=== PATIENT | male | born 1965 | race Hispanic/Latino ===

== ENCOUNTER 2017-01-02 07:49 | Observation (INO) | payer OTHER, BC ==
[2017-01-02] MEDS ORDERED: Aspirin 325 mg EC Tablets PO STA (08:20)
[2017-01-02] MEDS ORDERED: Sodium Chloride 0.9% 1,000 ML IV ONE (08:20)
[2017-01-02 09:03] LABS: BASO # 0.1 K/uL (0.0-0.2); BASO % 0.9 % (0.0-2.0); EOS # 0.1 K/uL (0.0-0.7); EOS % 1.4 % (0.0-4.0); HEMATOCRIT 48.8 % (35.0-51.0); LYMPH # 1.6 K/uL (1.0-4.3); LYMPH % 15.5 % (20.0-40.0); MEAN CELL VOLUME 90.7 fL (80.0-94.0); MEAN CORPUSCULAR HEMOGLOBIN 30.3 pg (27.0-31.0); MEAN CORPUSCULAR HGB CONC 33.4 g/dL (33.0-37.0); MEAN PLATELET VOLUME 8.3 fL (7.2-11.7); MONO # 0.7 K/uL (0.0-0.8); NRBC % 0.1 % (0.0-2.0); RED CELL DISTRIBUTION WIDTH 12.8 % (11.5-14.5); WHITE BLOOD COUNT 10.2 K/uL (4.8-10.8)
[2017-01-02 09:16] LABS: CHLORIDE 102 mmol/L (98-107)
[2017-01-02 09:17] LABS: POTASSIUM 3.5 mmol/L (3.6-5.2); SODIUM 138 mmol/L (132-148)
[2017-01-02 09:19] LABS: ALB/GLOB RATIO 1.6 (1.0-2.1); AST/SGOT 21 U/L (17-59); BILIRUBIN,TOTAL 0.8 mg/dL (0.2-1.3); CARBON DIOXIDE 20 mmol/L (22-30); GFR AFRICAN-AMERICAN > 60; TOTAL PROTEIN 7.9 g/dL (6.3-8.3)
[2017-01-02 09:20] LABS: ALKALINE PHOSPHATASE 55 U/L (38-126); ALT/SGPT 20 U/L (21-72); BLOOD UREA NITROGEN 13 mg/dL (9-20); CALCIUM 9.5 mg/dl (8.6-10.4); GLUCOSE,RANDOM 78 mg/dL (75-110)
[2017-01-02] MEDS ORDERED: Aspirin 325 mg EC Tablets PO ONE (10:01)
--- NOTE | 2017-01-02 10:06 | RAD ---
PROCEDURE: CHEST RADIOGRAPH, 1 VIEW HISTORY: chest pain COMPARISON: None available. FINDINGS: LUNGS: Clear. PLEURA: No pneumothorax or pleural fluid seen. CARDIOVASCULAR: Normal. OSSEOUS STRUCTURES: No significant abnormalities. VISUALIZED UPPER ABDOMEN: Normal. OTHER FINDINGS: None. IMPRESSION: No active disease.
--- NOTE | 2017-01-02 10:14 | RAD ---
PROCEDURE: Radiographs of the Lumbar Spine. HISTORY: pain COMPARISON: No prior. FINDINGS: BONES: Normal alignment. No listhesis. No fracture. DISC SPACES: Mild narrowing at L4-5 intervertebral disc space consistent with degenerative disc disease. Remaining intervertebral disc spaces maintained in height. Unremarkable. OTHER FINDINGS: One or several calculi overlying mid right kidney, 8 mm diameter. IMPRESSION: Degenerative disc disease L4-5. 8 mm calculus or calculi overlying mid right kidney.
--- NOTE | 2017-01-02 10:59 | C.PDOC ---
History Of Present Illness 51 yo male c/o chest pain, SOB and vomiting. Pt notes that he was at work, lifted signs, and right away felt the pain in his back. Pt dropped the signs, and fell over to the side. Ambulance was called and while pt was in the ambulance , he reports getting chest pain and SOB and "passing out". Chest pain is on the left side, feels sharp and does not radiate. Currently has back pain, chest pain, and SOB. (+) h/o "pulled" back. No incontinence. NO change in sesnation. Denies h/o anxiety. According to EMS, pt has syncopal episode, EKG done at the time. Time Seen by Provider: 01/02/17 08:15 Chief Complaint (Nursing): Back Pain History Per: Patient History/Exam Limitations: no limitations Onset/Duration Of Symptoms: Hrs Current Symptoms Are (Timing): Still Present Past Medical History Vital Signs: Last Vital Signs Temp 97.6 F 01/02/17 07:56 Pulse 91 H 01/02/17 07:56 Resp 20 01/02/17 07:56 BP 126/81 01/02/17 07:56 Pulse Ox 98 01/02/17 07:56 Family History: States: Unknown Family Hx - Social History Hx Alcohol Use: No Hx Substance Use: No - Immunization History Hx Tetanus Toxoid Vaccination: No Hx Influenza Vaccination: No Hx Pneumococcal Vaccination: No Review Of Systems Except As Marked, All Systems Reviewed And Found Negative. Cardiovascular: Positive for: Chest Pain Respiratory: Positive for: Shortness of Breath Musculoskeletal: Positive for: Back Pain Physical Exam - Physical Exam Appears: Non-toxic, In Acute Distress (actively vomiting, tachypnea and pale; appears anxious) Skin: Normal Color, Warm, Dry Head: Atraumatic, Normacephalic Eye(s): bilateral: Normal Inspection, PERRL, EOMI Nose: Normal Oral Mucosa: Moist Throat: Normal, No Erythema, No Exudate Neck: Normal, Normal ROM, Supple Lymphatic: Normal Exam Chest: Symmetrical Cardiovascular: Rhythm Regular Respiratory: Normal Breath Sounds Gastrointestinal/Abdominal: Normal Exam, Soft, No Tenderness Back: Paraspinal Tenderness (paralumbar tenderness) Extremity: Normal ROM Neurological/Psych: Oriented x3, Normal Speech, Normal Cognition, Normal Sensation Gait: Unable To Assess ED Course And Treatment - Laboratory Results Result Diagrams: 01/02/17 08:51 01/02/17 08:51 O2 Sat by Pulse Oximetry: 98 - Radiology CXR: Interpreted by Me, Viewed By Me CXR Interpretation: Yes: No Acute Disease Progress Note: Aspirin and O2 ordered. CAsed discussed with Dr Diaz, who evaluated pt at bedside. Agreed upon plan and treatment. On re-evaluation, pt appears anxious. Ativan ordered. On re-evaluation, pt tolerating PO. sleeping. Easy to arouse. When aroused, pt notes back pain persists. Chest pain improved. Case discussed with Dr Howell, agreed upon plan and admission. Disposition - Disposition Disposition: HOSPITALIZED Disposition Time: 11:05 Condition: STABLE - Clinical Impression Clinical Impression: Chest pain, Lumbar sprain, SOB (shortness of breath), Anxiety
--- NOTE | 2017-01-02 11:56 | CT ---
PROCEDURE: CT HEAD WITHOUT CONTRAST. HISTORY: syncope COMPARISON: None available. TECHNIQUE: Axial computed tomography images were obtained through the head/brain without intravenous contrast. Radiation dose: Total exam DLP = 871.03 mGy-cm. This CT exam was performed using one or more of the following dose reduction techniques: Automated exposure control, adjustment of the mA and/or kV according to patient size, and/or use of iterative reconstruction technique. FINDINGS: HEMORRHAGE: No acute parenchymal, subarachnoid or extra-axial hemorrhage. BRAIN: No evidence of large acute infarct. . . No obvious parenchymal nor extra-axial mass or collection identified on this noncontrast study. Mild age-appropriate volume loss VENTRICLES: Unremarkable. No hydrocephalus. CALVARIUM: No acute calvarial fractures. PARANASAL SINUSES: Minor mucosal thickening seen within a few ethmoid air cells MASTOID AIR CELLS: Unremarkable as visualized. No inflammatory changes. OTHER FINDINGS: None. IMPRESSION: No acute intracranial hemorrhage. . Mild age-appropriate volume loss is
[2017-01-02 12:21] LABS: RBC URINE 1 /hpf (0-3); URINE BACTERIA RARE (<OCC); URINE BILIRUBIN NEGATIVE (NEGATIVE); URINE BLOOD NEGATIVE (NEGATIVE); URINE COLOR Yellow (YELLOW); URINE GLUCOSE (UA) NORMAL (Normal); URINE KETONE TRACE mg/dL (NEGATIVE); URINE LEUKOCYTE ESTERASE NEG Leu/uL (Negative); URINE PROTEIN NEGATIVE (NEGATIVE); URINE UROBILINOGEN NORMAL mg/dL (0.2-1.0); WBC URINE 3 /hpf (0-5)
[2017-01-02] MEDS ORDERED: Potassium Chloride 20 mEq ER Tab PO STA ×2 (14:50→21:01)
--- NOTE | 2017-01-02 18:14 | CP.PCM.HP ---
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 pt first felt back pain and it was severe to point to opint were needed to call ambulance pt while in ambulance also passed iwth mild sob and vomitting which got resolved when i spoke to himm in er pt feels much better pt felt little bit of chest pain at that time but no pain now no f/h/o heart disease non soker non etoh absuer Present on Admission - Present on Admission Any Indicators Present on Admission: No Past Patient History - Infectious Disease Hx of Infectious Diseases: None - Past Medical History & Family History Past Medical History?: Yes - Past Social History Smoking Status: Never Smoked - CARDIAC Hx Cardiac Disorders: No Hx Angina: No Hx Atrial Fibrillation: No Hx Cardia Arrhythmia: No Hx Circulatory Problems: No Hx Congestive Heart Failure: No Hx Heart Attack: No Hx Heart Murmur: No Hx Heart Transplant: No Hx Hypercholesterolemia: No Hx Hypertension: No Hx Hypotension: No Hx Internal Defibrillator: No Hx Mitral Valve Prolapse: No Hx Pacemaker: No Hx Peripheral Edema: No Hx Peripheral Vascular Disease: No - PULMONARY Hx Respiratory Disorders: No Hx Asthma: No Hx Emphysema: No Hx Lung Cancer: No Hx Pneumonia: No Hx Pulmonary Edema: No Hx Pulmonary Embolism: No Hx Respiratory Aspiration: No Hx Respiratory Tract Infection: No Hx Sleep Apnea: No Hx Tuberculosis: No - NEUROLOGICAL Hx Neurological Disorder: No Hx Alzheimer's Disease: No HX Cerebrovascular Accident: No Hx Dementia: No Hx Dizziness: No Hx Meningitis: No Hx Migraine: No Hx Multiple Sclerosis: No Hx Paralysis: No Hx Parkinson's Disease: No Hx Seizures: No Hx Syncope: No Hx Transient Ischemic Attacks (TIA): No Hx Vertigo: No - HEENT Hx HEENT Problems: No Hx Blind: No Hx Cataracts: No Hx Deafness: No Hx Difficulty Chewing: No Hx Epistaxis: No Hx Glaucoma: No Hx Macular Degeneration: No Hx Sinusitis: No - RENAL Hx Chronic Kidney Disease: No Hx Dialysis: No Hx Kidney Stones: Yes Hx Neurogenic Bladder: No Hx Pyelonephritis: No Hx Renal (Kidney) Cancer: No Hx Renal Failure: No - ENDOCRINE/METABOLIC Hx Endocrine Disorders: No Hx Adrenal Cancer: No Hx Diabetes Insipidus: No Hx Diabetes Mellitus Type 1: No Hx Diabetes Mellitus Type 2: No Hx Hyperthyroidism: No Hx Hypothyroidism: No Hx Systemic Lupus Erythematosus: No - HEMATOLOGICAL/ONCOLOGICAL Hx Blood Disorders: No Hx AIDS: No Hx Anemia: No Hx Blood Transfusions: No Hx Blood Transfusion Reaction: No Hx Bruising: No Hx Cancer: No Hx Chemotherapy: No Hx Cirrhosis: No Hx Gum Bleeding: No Hx Hemophilia: No Hx Hepatitis A: No Hx Hepatitis B: No Hx Hepatitis C: No Hx Human Immunodeficiency Virus (HIV): No Hx Leukemia: No Hx Metastesis: No Hx Shingles: No Hx Sickle Cell Disease: No Hx Unexplained Bleeding: No Hx von Willebrand's Disease: No - INTEGUMENTARY Hx Dermatological Problems: No Hx Basil Cell: No Hx Paredes: No Hx Cellulitis: No Hx Eczema: No Hx Melanoma: No Hx Psoriasis: No Hx Squamous Cell: No - MUSCULOSKELETAL/RHEUMATOLOGICAL Hx Musculoskeletal Disorders: No Hx Arthritis: No Hx Back Pain: Yes Hx Degenerative Joint Disease: No Hx Falls: No Hx Fractures: No Hx Gout: No Hx Herniated Disk: No Hx Myasthenia Gravis: No Hx Osteoarthritis: No Hx Osteomyelitis: No Hx Osteoporosis: No Hx Rhabdomyolysis: No Hx Rheumatoid Arthritis: No Hx Spinal Stenosis: No Hx Unsteady Gait: No - GASTROINTESTINAL Hx Gastrointestinal Disorders: No - GENITOURINARY/GYNECOLOGICAL Hx Genitourinary Disorders: No - PSYCHIATRIC Hx Anxiety: Yes Hx Bipolar Disorder: No Hx Depression: No Hx Emotional Abuse: No Hx Hallucinations: No Hx Panic Symptoms: No Hx Paranoia: No Hx Post Traumatic Stress Disorder: No Hx Psychosis: No Hx Physical Abuse: No Hx Schizophrenia: No Hx Sexual Abuse: No Hx Substance Use: No - SURGICAL HISTORY Hx Surgeries: No - ANESTHESIA Hx Anesthesia: No Meds Allergies/Adverse Reactions: Allergies Allergy/AdvReac Type Severity Reaction Status Date / Time No Known Allergies Allergy Verified 01/02/17 07:57 Physical Exam - Constitutional Appears: Well - Head Exam Head Exam: ATRAUMATIC, NORMAL INSPECTION, NORMOCEPHALIC - Eye Exam Eye Exam: EOMI, Normal appearance, PERRL Pupil Exam: NORMAL ACCOMODATION, PERRL - ENT Exam ENT Exam: Mucous Membranes Moist, Normal Exam - Neck Exam Neck exam: Positive for: Normal Inspection - Respiratory Exam Respiratory Exam: Decreased Breath Sounds - Cardiovascular Exam Cardiovascular Exam: REGULAR RHYTHM, +S1, +S2 - GI/Abdominal Exam GI & Abdominal Exam: Diminished Bowel Sounds, Soft - Rectal Exam Rectal Exam: Deferred Results - Vital Signs Recent Vital Signs: Last Vital Signs Temp 97.5 F L 01/02/17 13:01 Pulse 78 01/02/17 15:30 Resp 18 01/02/17 13:01 BP 126/88 01/02/17 13:01 Pulse Ox 100 01/02/17 13:01 - Labs Result Diagrams: 01/02/17 08:51 01/02/17 08:51 Labs: Laboratory Results - last 24 hr 01/02/17 01/02/17 12:06 12:06 Urine Color Yellow Urine Clarity Clear Urine pH 9.0 Ur Specific [place] 1.013 Urine Protein Negative Urine Glucose (UA) Normal Urine Ketones Trace Urine Blood Negative Urine Nitrate Negative Urine Bilirubin Negative Urine Urobilinogen Normal Ur Leukocyte Esterase Neg Urine WBC (Auto) 3 Urine RBC (Auto) 1 Urine Bacteria Rare Urine Opiates Screen Negative Urine Methadone Screen Negative Ur Barbiturates Screen Negative Ur Phencyclidine Scrn Negative Ur Amphetamines Screen Negative U Benzodiazepines Scrn Negative U Oth Cocaine Metabols Negative U Cannabinoids Screen Negative Assessment & Plan (1) Renal calculus Status: Acute (2) Anxiety Status: Acute (3) Chest pain Status: Acute (4) Lumbar sprain Status: Acute (5) SOB (shortness of breath) Status: Acute - Assessment and Plan (Free Text) Plan: cardio neuro uro as out pt pt been told that he has stone and needs wokr up aspirin troponin ct head ls spine x ray kcl supplementation monitor pt closely
[2017-01-03] MEDS ORDERED: Potassium Chloride 20 mEq ER Tab PO STA
[2017-01-03] MEDS ORDERED: Potassium Chloride 20 mEq ER Tab PO ONE (00:07)
[2017-01-03 02:41] VITALS: RESP 20
[2017-01-03 07:11] LABS: BASO # 0.1 K/uL (0.0-0.2); BASO % 0.8 % (0.0-2.0); EOS # 0.2 K/uL (0.0-0.7); EOS % 1.8 % (0.0-4.0); HEMATOCRIT 47.3 % (35.0-51.0); LYMPH # 1.7 K/uL (1.0-4.3); MEAN CELL VOLUME 91.8 fL (80.0-94.0); MEAN CORPUSCULAR HEMOGLOBIN 30.8 pg (27.0-31.0); MEAN CORPUSCULAR HGB CONC 33.5 g/dL (33.0-37.0); MONO # 0.7 K/uL (0.0-0.8); MONO % 6.6 % (0.0-10.0); RED CELL DISTRIBUTION WIDTH 12.4 % (11.5-14.5)
[2017-01-03 07:41] LABS: CHLORIDE 104 mmol/L (98-107); SODIUM 138 mmol/L (132-148)
[2017-01-03 07:42] LABS: POTASSIUM 4.2 mmol/L (3.6-5.2)
[2017-01-03 07:44] LABS: ALB/GLOB RATIO 1.3 (1.0-2.1); ALKALINE PHOSPHATASE 47 U/L (38-126); ALT/SGPT 13 U/L (21-72); AST/SGOT 20 U/L (17-59); BILIRUBIN,TOTAL 0.8 mg/dL (0.2-1.3); BLOOD UREA NITROGEN 13 mg/dL (9-20); CARBON DIOXIDE 24 mmol/L (22-30); GFR AFRICAN-AMERICAN > 60; GLUCOSE,RANDOM 87 mg/dL (75-110); TOTAL PROTEIN 7.2 g/dL (6.3-8.3)
[2017-01-03 07:45] LABS: CALCIUM 8.9 mg/dl (8.6-10.4)
[2017-01-03] MEDS: Enoxaparin 40 mg Syringe SC SCH (10:02)
[2017-01-03] MEDS: Pantoprazole 40 mg EC Tab PO SCH (10:03)
--- NOTE | 2017-01-03 10:14 | MRI ---
PROCEDURE: MRI lumbar spine dated 01/03/2017 COMPARISON: Correlation made with plain film radiographs of the lumbar spine dated 01/02/2017. TECHNIQUE: Multi echo multiplanar sequences were performed through the lumbar spine without the use of intravenous contrast. FINDINGS: The current study reveals no acute compression fractures no retropulsed fragments. Vertebral bodies exhibit normal stature. There is mild straightening of the normal lumbar lordosis. Vertebral bodies facets are otherwise normally aligned. Moderately large hemangioma within L3 segment with smaller hemangioma L5 segment. There also appears to be tiny atypical hemangioma within the L1 segment and possibly in the T12 segment as well. Mild multilevel degenerative spondylosis is present. At the L3-L4 level, there mild age related disc desiccation. Disc space height maintained. There is a small medium-sized asymmetric central and bilateral (left slightly larger than right) disc herniation which is associate with a medium-sized annular fissure in the posterior annulus. The disc does result in compressive effects on the ventral surface of the thecal sac centrally and to the left more so than right with compression and posterior displacement of the nearly exiting left-sided intrathecal L4 nerve root. Central canal is adequate despite the at aforementioned disc herniation. Facets are slightly hypertrophic. The disc extends slightly into the proximal inferior margins of both exit foramina. Exit foramina are marginal to adequate. At the L4-L5 level, there is mild disc desiccation and disc space narrowing. Small to medium-sized asymmetric disc bulge larger on the left than right also results in mild compression of the ventral surface of the thecal sac more so on the left side and mild posterior displacement of the nearly exiting left-sided intrathecal L5 nerve root. Central canal appears adequate. Facets are hypertrophic of. The disc does extend into the proximal inferior margins of both exit foramina however the exit foramina appear adequate. At the L5-S1 level, there is disc desiccation and mild disc space narrowing more so along the posterior disc margin. Small central and bilateral disc bulge flattens the ventral surface of the thecal sac however the overall central canal is quite capacious at this level. Facets are mildly hypertrophic. Exit foramina are adequate. Remaining levels exhibit adequate disc height and hydration. No disc herniation or significant disc bulge. Facets are slightly prominent. Central canal and exit foramina appear adequate. Conus terminates at approximately the mid L1 level Incidental note made of a small bilateral renal cysts. Renal ultrasound could be performed for further evaluation. No acute fractures. . Multilevel degenerative spondylosis most notably at affecting the L3-L4 level where small to medium-sized central and bilateral (left greater than right) disc herniation results in compressive effects on the intrathecal nerve roots as detailed above.
--- NOTE | 2017-01-03 10:47 | CP.PCM.PN ---
<Lilly Calabrese - Last Filed: 01/03/17 10:38> Subjective - Date & Time of Evaluation Date of Evaluation: 01/03/17 Time of Evaluation: 10:00 - Subjective Subjective: Medicine Progress Note- Lilly Calabrese PGY2 Patient seen and examined. Patient went for MRI Lumbar spine today and was informed of results. Patient currently complains of back pain rated 7/10 localized to his low mid-back. Patient states that his chest pain has resolved and was only present when he was in the ambulance. Patient has not had any more episodes of syncope or dizziness since admission. Patient is ambulating without difficulty. Per patient he has experienced back pain before while working due to muscle spasms. Currently denies fever, chest pain, shortness of breath, and headache. Objective - Vital Signs/Intake and Output Vital Signs (last 24 hours): Temp Pulse Resp BP Pulse Ox 97.5 F L 69 20 123/79 95 01/03/17 07:11 01/03/17 07:11 01/03/17 07:11 01/03/17 07:11 01/03/17 07:11 Intake and Output: 01/03/17 01/03/17 06:59 18:59 Output Total 250 Balance -250 - Medications Medications: Current Medications Aspirin (Aspirin) 325 mg PO DAILY [facility] Last Admin: 01/03/17 10:03 Dose: 325 mg Enoxaparin Sodium (Lovenox) 40 mg SC DAILY [facility] Last Admin: 01/03/17 10:02 Dose: 40 mg Ibuprofen (Motrin Tab) 400 mg PO Q8 PRN PRN Reason: Pain, moderate (4-7) Last Admin: 01/02/17 19:02 Dose: 400 mg Pantoprazole Sodium (Protonix Ec Tab) 40 mg PO DAILY [facility] Last Admin: 01/03/17 10:03 Dose: 40 mg - Labs Labs: 01/03/17 06:57 01/03/17 06:57 - Constitutional Appears: Non-toxic, No Acute Distress - Head Exam Head Exam: ATRAUMATIC, NORMOCEPHALIC - Eye Exam Eye Exam: EOMI, Normal appearance - ENT Exam ENT Exam: Mucous Membranes Moist - Neck Exam Neck Exam: Normal Inspection - Respiratory Exam Respiratory Exam: Clear to Ausculation Bilateral, NORMAL BREATHING PATTERN. absent: Rhonchi, Wheezes, Respiratory Distress - Cardiovascular Exam Cardiovascular Exam: REGULAR RHYTHM, +S1, +S2 - GI/Abdominal Exam GI & Abdominal Exam: Soft, Normal Bowel Sounds. absent: Firm, Guarding, Rigid, Tenderness - Extremities Exam Extremities Exam: Normal Inspection. absent: Pedal Edema - Back Exam Back Exam: Full ROM. absent: CVA tenderness (L), CVA tenderness (R) - Neurological Exam Neurological Exam: Alert, Awake, CN II-XII Intact, Oriented x3 - Psychiatric Exam Psychiatric exam: Normal Affect, Normal Mood - Skin Skin Exam: Dry, Intact, Normal Color, Warm Assessment and Plan - Assessment and Plan (Free Text) Assessment: 1. Chest pain Resolved ROMIs negative x3 [employer] Dr Murdock consulted ASA 81mg PO daily CXR- no active disease 2. Back pain Degenerative disc disease L4-5. 8 mm calculus or calculi overlying mid right kidney. Lumbar spine MRI- The current study reveals no acute compression fractures no retropulsed fragments. Moderately large hemangioma within L3 segment with smaller hemangioma L5 segment. There also appears to be tiny atypical hemangioma within the L1 segment and possibly in the T12 segment as well. Mild multilevel degenerative spondylosis is present. At the L3-L4 level, there mild age related disc desiccation. There is a small medium-sized asymmetric central and bilateral (left slightly larger than right) disc herniation which is associate with a medium-sized annular fissure in the posterior annulus. At the L4-L5 level, there is mild disc desiccation and disc space narrowing. At the L5-S1 level, there is disc desiccation and mild disc space narrowing more so along the posterior disc margin. 3. Syncope Neuro Dr Bedoya consulted CT head- negative for acute findings PT eval 4. Prophylactic measures Lovenox 40mg SC daily Protonix 40mg PO daily [facility] <Gladis Howell S - Last Filed: 01/03/17 14:04> Objective - Vital Signs/Intake and Output Vital Signs (last 24 hours): Temp Pulse Resp BP Pulse Ox 97.5 F L 69 20 123/79 95 01/03/17 07:11 01/03/17 07:11 01/03/17 07:11 01/03/17 07:11 01/03/17 07:11 Intake and Output: 01/03/17 01/03/17 06:59 18:59 Output Total 250 Balance -250 - Medications Medications: Current Medications Aspirin (Aspirin Chewable) 81 mg PO DAILY [facility] Enoxaparin Sodium (Lovenox) 40 mg SC DAILY [facility] Last Admin: 01/03/17 10:02 Dose: 40 mg Ibuprofen (Motrin Tab) 400 mg PO Q8 PRN PRN Reason: Pain, moderate (4-7) Last Admin: 01/03/17 11:24 Dose: 400 mg Pantoprazole Sodium (Protonix Ec Tab) 40 mg PO DAILY [facility] Last Admin: 01/03/17 10:03 Dose: 40 mg - Labs Labs: 01/03/17 06:57 01/03/17 06:57 Assessment and Plan (1) Renal calculus Status: Acute (2) Anxiety Status: Acute (3) Chest pain Status: Resolved (4) Lumbar sprain Status: Acute (5) SOB (shortness of breath) Status: Resolved Attending/Attestation - Attestation I have personally seen and examined this patient.: Yes I have fully participated in the care of the patient.: Yes I have reviewed all pertinent clinical information, including history, physical exam and plan: Yes Notes (Text): 01/03/17 14:04 mri reveals multiple hemangiomas pt has pain whour [facility] is better told him about result elaina same awaiting for consultation for followup possible discharge tomrrow
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
--- NOTE | 2017-01-03 11:19 | CON ---
DATE: 01/03/2017 ATTENDING PHYSICIAN: Blue Howell MD The patient's room number is 650, bed B. CHIEF COMPLAINT: The patient was brought into [facility] with a history of lower back pain and the process of coming to the [facility] the patient was passed out in the ambulance. From neuro logical point of view, I was called in to evaluate him for further management. 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 Because of the abrupt onset of his lower back, he gave up the signs. Because of the i ntensified pain he was not able to move by himself. Ambulance was called in. In the ambulance he wa s told he passed out with profuse sweating. He also had left-sided chest pain which was sharp in roger ure. This back pain is not related to bowel and bladder incontinence. No sexual dysfunction. No radicula r nature. No associated with numbness and tingling sensation. PAST MEDICAL HISTORY: Unremarkable. PERSONAL HISTORY: Denies smoking or alcohol use. ALLERGIES: No known allergies. MEDICATIONS: Aspirin, Lovenox, ibuprofen, and pantoprazole. PHYSICAL EXAMINATION: VITAL SIGNS: Blood pressure 123/79, mean arterial pressure of 93, respiratory rate 16, temperature 9 7.5 with a pulse rate of 69. NECK: Supple. No carotid bruit. HEART SOUNDS: Regular. CHEST: Fair air entry. EXTREMITIES: No edema in legs. NEUROLOGIC EXAMINATION: MENTAL STATUS: He is awake, alert, oriented to person, place, and time. His speech is clear. Namin g, repetition, fluency, comprehension all within normal. CRANIAL NERVES: Visual field intact. Pupils reactive to light. Extraocular movements are normal. No nystagmus. No facial sensory deficit, no facial asymmetry. Hearing is normal. Tongue is midline . Good gag. MOTOR: On outstretched hands with eyes closed, no drift noted. Power is symmetric on either side in the upper extremities. LOWER EXTREMITIES: Pain limited exam. He was able to lift both lower extremities against the gravit y with pain; however he was not able to sustain in one position. STRENGTH: Muscle strength individually shows 5-/5 knee flexion and hip flexion. His other muscle gr oups are 5/5. DEEP TENDON REFLEXES: Biceps, brachioradialis, triceps are 1+, both knees are 2+, both ankles are 1+ . Plantars are equivocal response on his left side; right side was downgoing. SENSORY: No evidence of dermatomal sensory loss. GAIT: Deferred at this time. CONCLUSION: Upon reviewing his history and neurological examination, the patient has been presenting with abrupt onset of lower back pain related to his lifting. Probably he herniated his disk in his back, or it could be worsening his preexisting problem. His syncopal episode is not related; however, it could be related to the pain. Unlikely it could be a neurogenic cause with the nature of the history. The patient should be worked up by state historical society director because of his pain associating with syncopal attack. WORKUP: WBC 10.2, hemoglobin 16.3, hematocrit 48.8, platelet 321. D-dimer less than 200. Sodium 13 8, potassium 3.5, chloride 102, bicarbonate 20, GFR more than 60. Urinalysis normal. Urine tox scre en negative. X-ray of the lumbosacral spine shows a disk problem, degenerative disk disease. CT of the head negative. RECOMMENDATIONS: 1. Bed rest, pain medication. 2. EEG to rule out any electrographic seizures. 3. Cardiology workup for clearance before he goes home. 4. The patient should have MRI of the brain. If MRI is no acute pathology, then the patient can be managed as outpatient. Tim Bedoya MD cc: [id number] TT: 01/03/2017 11:18:27 Confirmation # [id number] Dictation # [id number] mn
--- NOTE | 2017-01-04 07:32 | CP.PCM.PN ---
<Lilly Calabrese - Last Filed: 01/04/17 09:47> Subjective - Date & Time of Evaluation Date of Evaluation: 01/04/17 Time of Evaluation: 09:48 - Subjective Subjective: Medicine Progress Note- Lilly Calabrese PGY2 Patient seen and examined. Patient states that he feels better today. Patient' s back pain has improved and he no longer is experiencing any chest pain. Denies fever, chills, nausea, vomiting, chest pain, shortness of breath, cough, weakness, numbness, tingling, headache, palpitations, and syncope. Objective - Vital Signs/Intake and Output Vital Signs (last 24 hours): Temp Pulse Resp BP Pulse Ox 97.5 F L 71 20 105/66 97 01/04/17 04:05 01/04/17 04:05 01/04/17 04:05 01/04/17 04:05 01/04/17 04:05 Intake and Output: 01/04/17 01/04/17 06:59 18:59 Output Total 800 Balance -800 - Medications Medications: Current Medications Acetaminophen (Tylenol 325mg Tab) 650 mg PO Q6 PRN PRN Reason: Headache Aspirin (Aspirin Chewable) 81 mg PO DAILY [facility] Enoxaparin Sodium (Lovenox) 40 mg SC DAILY [facility] Last Admin: 01/03/17 10:02 Dose: 40 mg Ibuprofen (Motrin Tab) 400 mg PO Q8 PRN PRN Reason: Pain, moderate (4-7) Last Admin: 01/03/17 11:24 Dose: 400 mg Pantoprazole Sodium (Protonix Ec Tab) 40 mg PO DAILY [facility] Last Admin: 01/03/17 10:03 Dose: 40 mg - Labs Labs: 01/03/17 06:57 01/03/17 06:57 - Constitutional Appears: Non-toxic, No Acute Distress - Head Exam Head Exam: ATRAUMATIC, NORMOCEPHALIC - Eye Exam Eye Exam: EOMI, Normal appearance Pupil Exam: NORMAL ACCOMODATION - ENT Exam ENT Exam: Mucous Membranes Moist - Neck Exam Neck Exam: Normal Inspection - Respiratory Exam Respiratory Exam: Clear to Ausculation Bilateral, NORMAL BREATHING PATTERN. absent: Rhonchi, Wheezes, Respiratory Distress - Cardiovascular Exam Cardiovascular Exam: REGULAR RHYTHM, +S1, +S2 - GI/Abdominal Exam GI & Abdominal Exam: Soft, Normal Bowel Sounds. absent: Tenderness - Extremities Exam Extremities Exam: Normal Inspection. absent: Pedal Edema - Back Exam Back Exam: paraspinal tenderness - Neurological Exam Neurological Exam: Alert, Awake, Oriented x3 - Psychiatric Exam Psychiatric exam: Normal Affect, Normal Mood - Skin Skin Exam: Dry, Intact, Normal Color, Warm - Additional Findings Additional findings: - Constitutional Appears: Non-toxic, No Acute Distress - Head Exam Head Exam: ATRAUMATIC, NORMOCEPHALIC - Eye Exam Eye Exam: EOMI, Normal appearance - ENT Exam ENT Exam: Mucous Membranes Moist - Neck Exam Neck Exam: Normal Inspection - Respiratory Exam Respiratory Exam: Clear to Ausculation Bilateral, NORMAL BREATHING PATTERN. absent: Rhonchi, Wheezes, Respiratory Distress - Cardiovascular Exam Cardiovascular Exam: REGULAR RHYTHM, +S1, +S2 - GI/Abdominal Exam GI & Abdominal Exam: Soft, Normal Bowel Sounds. absent: Firm, Guarding, Rigid, Tenderness - Extremities Exam Extremities Exam: Normal Inspection. absent: Pedal Edema - Back Exam Back Exam: Full ROM. absent: CVA tenderness (L), CVA tenderness (R) - Neurological Exam Neurological Exam: Alert, Awake, CN II-XII Intact, Oriented x3 - Psychiatric Exam Psychiatric exam: Normal Affect, Normal Mood - Skin Skin Exam: Dry, Intact, Normal Color, Warm Assessment and Plan - Assessment and Plan (Free Text) Assessment: 1. Chest pain Resolved ROMIs negative x3 Labor Relations Director Dr Murdock consulted ASA 81mg PO daily CXR- no active disease Per cardiology: Unlikely ACS given NSR on EKG without ST-changes and negative trops x3, but continue to monitor telemetry, pending ECHO 2. Back pain Degenerative disc disease L4-5. 8 mm calculus or calculi overlying mid right kidney. Lumbar spine MRI- The current study reveals no acute compression fractures no retropulsed fragments. Moderately large hemangioma within L3 segment with smaller hemangioma L5 segment. There also appears to be tiny atypical hemangioma within the L1 segment and possibly in the T12 segment as well. Mild multilevel degenerative spondylosis is present. At the L3-L4 level, there mild age related disc desiccation. There is a small medium-sized asymmetric central and bilateral (left slightly larger than right) disc herniation which is associate with a medium-sized annular fissure in the posterior annulus. At the L4-L5 level, there is mild disc desiccation and disc space narrowing. At the L5-S1 level, there is disc desiccation and mild disc space narrowing more so along the posterior disc margin. f/u with Dr Bedoya regarding imaging results 3. Syncope Neuro Dr Bedoya consulted CT head- negative for acute findings PT eval f/u EEG EK01/02/17- Normal sinus rhythm at 84, No acute ST changes, mild QTc prolongation at 458 Chest X-ray: 01/02/17- no active disease Troponins: negative X 3 4. Prophylactic measures Lovenox 40mg SC daily Protonix 40mg PO daily [facility] Management per Dr Howell <Gladis Howell S - Last Filed: 01/04/17 18:24> Objective - Vital Signs/Intake and Output Vital Signs (last 24 hours): Temp Pulse Resp BP Pulse Ox 98.4 F 79 20 120/61 96 01/04/17 15:21 01/04/17 15:21 01/04/17 15:21 01/04/17 15:21 01/04/17 15:21 Intake and Output: 01/04/17 01/04/17 06:59 18:59 Intake Total 500 Output Total 800 1040 Balance -800 -540 - Medications Medications: Current Medications Acetaminophen (Tylenol 325mg Tab) 650 mg PO Q6 PRN PRN Reason: Headache Aspirin (Aspirin Chewable) 81 mg PO DAILY [facility] Last Admin: 01/04/17 09:11 Dose: 81 mg Enoxaparin Sodium (Lovenox) 40 mg SC DAILY [facility] Last Admin: 01/04/17 09:08 Dose: 40 mg Ibuprofen (Motrin Tab) 400 mg PO Q8 PRN PRN Reason: Pain, moderate (4-7) Last Admin: 01/03/17 11:24 Dose: 400 mg Pantoprazole Sodium (Protonix Ec Tab) 40 mg PO DAILY [facility] Last Admin: 01/04/17 09:08 Dose: 40 mg - Labs Labs: 01/03/17 06:57 01/03/17 06:57 Assessment and Plan (1) Renal calculus Status: Acute (2) Anxiety Status: Acute (3) Chest pain Status: Resolved (4) Lumbar sprain Status: Acute (5) SOB (shortness of breath) Status: Resolved Attending/Attestation - Attestation I have personally seen and examined this patient.: Yes I have fully participated in the care of the patient.: Yes I have reviewed all pertinent clinical information, including history, physical exam and plan: Yes Notes (Text): 01/04/17 18:24 pt wtih mutlipe issues with syncope and back rupesh field to clear for discharge as pt has multiple hemangiomnas on back elaina same
[2017-01-04 08:10] VITALS: O2SAT 96
[2017-01-04] MEDS: Enoxaparin 40 mg Syringe SC SCH (09:08)
[2017-01-04] MEDS: Pantoprazole 40 mg EC Tab PO SCH (09:08)
--- NOTE | 2017-01-04 10:29 | CP.PCM.PN ---
Subjective - Date & Time of Evaluation Date of Evaluation: 01/04/17 Time of Evaluation: 13:40 - Subjective Subjective: clinically same Objective - Vital Signs/Intake and Output Vital Signs (last 24 hours): Temp Pulse Resp BP Pulse Ox 98.2 F 72 20 123/80 96 01/04/17 07:00 01/04/17 07:00 01/04/17 07:00 01/04/17 07:00 01/04/17 07:00 Intake and Output: 01/04/17 01/04/17 06:59 18:59 Output Total 800 Balance -800 - Medications Medications: Current Medications Acetaminophen (Tylenol 325mg Tab) 650 mg PO Q6 PRN PRN Reason: Headache Aspirin (Aspirin Chewable) 81 mg PO DAILY [facility] Last Admin: 01/04/17 09:11 Dose: 81 mg Enoxaparin Sodium (Lovenox) 40 mg SC DAILY [facility] Last Admin: 01/04/17 09:08 Dose: 40 mg Ibuprofen (Motrin Tab) 400 mg PO Q8 PRN PRN Reason: Pain, moderate (4-7) Last Admin: 01/03/17 11:24 Dose: 400 mg Pantoprazole Sodium (Protonix Ec Tab) 40 mg PO DAILY [facility] Last Admin: 01/04/17 09:08 Dose: 40 mg - Labs Labs: 01/03/17 06:57 01/03/17 06:57 - Constitutional Appears: Well - Head Exam Head Exam: ATRAUMATIC, NORMAL INSPECTION, NORMOCEPHALIC - Eye Exam Eye Exam: EOMI, Normal appearance, PERRL Pupil Exam: NORMAL ACCOMODATION, PERRL - ENT Exam ENT Exam: Mucous Membranes Moist, Normal Exam - Neck Exam Neck Exam: Full ROM, Normal Inspection. absent: Lymphadenopathy - Respiratory Exam Respiratory Exam: Decreased Breath Sounds - Cardiovascular Exam Cardiovascular Exam: REGULAR RHYTHM, +S1, +S2 - GI/Abdominal Exam GI & Abdominal Exam: Soft, Diminished Bowel Sounds - Rectal Exam Rectal Exam: Deferred Assessment and Plan (1) Renal calculus Status: Acute (2) Anxiety Status: Acute (3) Chest pain Status: Resolved (4) Lumbar sprain Status: Acute (5) SOB (shortness of breath) Status: Resolved - Assessment and Plan (Free Text) Plan: pt wtih mutlipe issues with syncope and back rupesh field to clear for discharge as pt has multiple hemangiomnas on back elaina same
--- NOTE | 2017-01-04 11:17 | CP.PCM.PN ---
<Prakash Srivastava - Last Filed: 01/04/17 11:12> Subjective - Date & Time of Evaluation Date of Evaluation: 01/04/17 Time of Evaluation: 07:25 - Subjective Subjective: Cardiology progress note Dr Murdock Patient seen and examined at the bedside. No acute distress, resting comfortably in bed. No acute events overnight as per patient and nursing. No chest pain, shortness of breath, dizziness, or further syncopal episodes at rest or with ambulation. Back pain improved but not fully resolved. The patient denies other cardiopulmonary complaints. 12 point review of systems was completed and returned negative aside from the above stated complaints. Objective - Vital Signs/Intake and Output Vital Signs (last 24 hours): Temp Pulse Resp BP Pulse Ox 98.2 F 72 20 123/80 96 01/04/17 07:00 01/04/17 07:00 01/04/17 07:00 01/04/17 07:00 01/04/17 07:00 Intake and Output: 01/04/17 01/04/17 06:59 18:59 Output Total 800 Balance -800 - Medications Medications: Current Medications Acetaminophen (Tylenol 325mg Tab) 650 mg PO Q6 PRN PRN Reason: Headache Aspirin (Aspirin Chewable) 81 mg PO DAILY [facility] Last Admin: 01/04/17 09:11 Dose: 81 mg Enoxaparin Sodium (Lovenox) 40 mg SC DAILY [facility] Last Admin: 01/04/17 09:08 Dose: 40 mg Ibuprofen (Motrin Tab) 400 mg PO Q8 PRN PRN Reason: Pain, moderate (4-7) Last Admin: 01/03/17 11:24 Dose: 400 mg Pantoprazole Sodium (Protonix Ec Tab) 40 mg PO DAILY [facility] Last Admin: 01/04/17 09:08 Dose: 40 mg - Labs Labs: 01/03/17 06:57 01/03/17 06:57 - Additional Findings Additional findings: - Constitutional Appears: Well, Non-toxic, No Acute Distress, Resting comfortably in bed - Head Exam Head Exam: ATRAUMATIC, NORMAL INSPECTION, NORMOCEPHALIC - Eye Exam Eye Exam: EOMI, Normal appearance. absent: Conjunctival injection, Scleral icterus Pupil Exam: absent: Irregular, Unequal - ENT Exam ENT Exam: Mucous Membranes Moist - Neck Exam Neck exam: Positive for: Full Rom, Normal Inspection. Negative for: Tenderness , JVD - Respiratory Exam Respiratory Exam: Clear to Auscultation Bilateral, NORMAL BREATHING PATTERN. absent: Accessory Muscle Use, Chest Wall Tenderness, Decreased Breath Sounds, Rales, Rhonchi, Wheezes - Cardiovascular Exam Cardiovascular Exam: REGULAR RHYTHM, RRR, +S1, +S2. absent: Bradycardia, Tachycardia, Clicks, Diastolic murmur, Irregular Rhythm, JVD, +S4, Systolic Murmur - GI/Abdominal Exam GI & Abdominal Exam: Normal Bowel Sounds, Soft. absent: Diminished Bowel Sounds , Distended, Firm, Hyperactive Bowel Sounds, Hypoactive Bowel Sounds, Rigid, Tenderness - Extremities Exam Extremities exam: Positive for: normal capillary refill, pedal pulses present (+ 2 dorsalis pedis bilaterally). Negative for: calf tenderness, joint swelling, pedal edema, tenderness - Back Exam Back exam: Full ROM. absent: CVA tenderness (L or R), muscle spasm, rash - Neurological Exam Neurological exam: Alert, CN II-XII Intact, Oriented x3 - Psychiatric Exam Psychiatric exam: Normal Affect, Normal Mood - Skin Skin Exam: Dry, Intact, Normal Color, Warm Assessment and Plan (1) Episode of syncope Assessment & Plan: EK01/02/17- Normal sinus rhythm at 84, No acute ST changes, mild QTc prolongation at 458 Chest X-ray: 01/02/17- no active disease Troponins: negative X 3 -Anxiety vs neuro etiology vs ACS vs cardiogenic syncope; Likely anxiety but will obtain Echo to ensure not cardiogenic -continue Telemetry monitoring -NSR on EKG and trops negative x3, so less likely ACS -No prior stress testing or Echo noted, Echo pending -Hemodynamically stable, cardiac stable Status: Acute (2) Chest pain Assessment & Plan: EK01/02/17- Normal sinus rhythm at 84, No acute ST changes, mild QTc prolongation at 458 Chest X-ray: 01/02/17- no active disease Troponins: negative X 3 -Anxiety vs ACS: Resolved -Pt admits to history of chest pain after emotional/stressful situations, always self-resolves; no chest pain today -Unlikely ACS given NSR on EKG without ST-changes and negative trops x3, but continue to monitor telemetry, pending Echo Status: Resolved (3) SOB (shortness of breath) Assessment & Plan: EK01/02/17- Normal sinus rhythm at 84, No acute ST changes, mild QTc prolongation at 458 Chest X-ray: 01/02/17- no active disease Troponins: negative X 3 -anxiety vs ACS vs lung pathology: resolved -no history of lung pathology, CXR on admit negative for acute process -never smoker -patient reports anxious in the ambulance due to concern for serious health issue, never needed EMS previously, became short of breath; no further incidence since arrival to hospital, satting well on Room air, CTAB on exam without wheezes/rales/ronchi Status: Resolved - Assessment and Plan (Free Text) Assessment: If Echo is unremarkable, patient will likely be clear for discharge from Cardiac standpoint Case discussed with Dr. Murdock. <Loreto Murdock - Last Filed: 01/06/17 20:20> Objective - Vital Signs/Intake and Output Vital Signs (last 24 hours): Temp Pulse Resp BP Pulse Ox 98.4 F 79 20 120/61 96 01/04/17 15:21 01/04/17 15:21 01/04/17 15:21 01/04/17 15:21 01/04/17 15:21 - Labs Labs: 01/03/17 06:57 01/03/17 06:57 Attending/Attestation - Attestation I have personally seen and examined this patient.: Yes I have fully participated in the care of the patient.: Yes I have reviewed all pertinent clinical information, including history, physical exam and plan: Yes Notes (Text): 01/06/17 20:20 outpt stress pain improved nl echo
[2017-01-04 15:25] VITALS: BP 120/61; PULSE 79; TEMP 98.4
--- NOTE | 2017-01-04 18:32 | PN ---
DATE: 01/04/2017 NEUROLOGICAL PROBLEM: Lumbosacral pain, probably disk pathology. PHYSICAL EXAMINATION: VITAL SIGNS: Blood pressure 123/80, mean arterial pressure 94, respiratory rate 16, temperature 98. 2, pulse rate 72 and regular. NEUROLOGIC: The patient is more awake, alert, oriented to person, place, and time. His back pain is very comfortable. He was able to walk normal. On examination, the patient able to walk heel as wel l as the toes, he was able to sit and get up on his own. Examination no evidence of radiculopathy or neuropathy. His MRA was reported as mild disk desiccation at L3-L4 region, L4-L5 as well as L5-S1 also showed a d isk desiccation with narrowing of the disk space without affecting the nerve root. RECOMMENDATIONS: Continue the present management for the pain. The patient can be discharged from n euro point of view and he should have a neurological followup as outpatient if his symptoms persist. Thank you very much for giving me this opportunity to take care of the patient with you. Tim Bedoya MD cc: [id number] TT: 01/04/2017 18:31:51 Confirmation # [id number] Dictation # [id number]
--- NOTE | 2017-01-04 21:39 | EEG ---
DATE: 01/04/2017 A 16-channel electroencephalogram of awake and drowsy adult. During the study, photic stimulation was performed. Hyperventilation was not performed. The resting electroencephalogram consists of 30-40 microvolt alpha activity diffusely seen at parietal and occipital leads. Anteriorly fast activity superimposed with 2-3 Hz, delta activity seen at frontal and central leads. The photic stimulation did not evoke driving response noted at 2-20 Hz. IMPRESSION: This is a normal electroencephalogram of awake and drowsy adult. During the study, neither electroencephalographic paroxysmal activities nor focal slowing noted. Tim Bedoya MD cc: [id number] TT: 01/04/2017 21:38:40 Confirmation # [id number] Dictation # [id number] MTDD
--- NOTE | 2017-01-04 23:18 | CARD ---
APPROVED REPORT EXAM: Two-dimensional and M-mode echocardiogram with Doppler and color Doppler. Other Information Quality : GoodRhythm : NSR INDICATION Chest Pain Syncope RISK FACTORS Hypertension M-Mode DIMENSIONS RVDd2.14 (2.1-3.2cm)Left Atrium (MM)3.76 (2.5-4.0cm) IVSd0.70 (0.7-1.1cm)Aortic Root2.77 (2.2-3.7cm) LVDd5.42 (4.0-5.6cm)Aortic Cusp Exc.1.84 (1.5-2.0cm) PWd1.03 (0.7-1.1cm)FS (%) 37 % LVDs3.43 (2.0-3.8cm)LVEF (%)66 (>50%) Aortic Valve AoV Peak Lofabdhv39.0cm/Brittani Peak GR.2mmHg Mitral Valve MV E Hhmnzpvf03.4cm/sMV A Vurwwfsk99.2cm/sE/A ratio1.6 TDI E/Lateral E'0.0E/Medial E'0.0 Tricuspid Valve TR Peak Lhajlcms072jf/sTR Peak Gr.[id number] LEFT VENTRICLE The left ventricle is normal size. There is normal left ventricular wall thickness. Left ventricle systolic function is normal. The Ejection Fraction is 65-70%. There is normal LV segmental wall motion. The left ventricular diastolic function is normal. There is no ventricular septal defect visualized. RIGHT VENTRICLE The right ventricle is normal size. ATRIA The left atrium size is normal. The right atrium size is normal. AORTIC VALVE The aortic valve is tri-cuspid. The aortic valve is normal in structure. No aortic regurgitation is present. There is no aortic valvular stenosis. MITRAL VALVE The mitral valve is normal in structure. There is no evidence of mitral valve prolapse. There is no mitral valve regurgitation noted. TRICUSPID VALVE The tricuspid valve is normal in structure. There is trace tricuspid regurgitation. Right ventricular systolic pressure is estimated at less than 30 mmHg. There is no pulmonary hypertension. PULMONIC VALVE The pulmonic valve is not well visualized. There is no pulmonic valvular regurgitation. GREAT VESSELS The IVC is normal in size and collapses >50% with inspiration. PERICARDIAL EFFUSION There is no pericardial effusion. <Conclusion> Grossly normal study
--- NOTE | 2017-01-05 00:25 | CARD ---
APPROVED REPORT EKG Measurement Heart [id number] <Conclusion> Normal sinus rhythm Normal ECG
--- NOTE | 2017-01-30 14:41 | CARD ---
APPROVED REPORT EKG Measurement Heart [id number] IN [id number] <Conclusion> Normal sinus rhythm Normal ECG
== END 2017-01-05 13:53 | disposition home or self-care (01) ==
LOC: C.ER 07:49 → C.9E 10:24 → C.6T 12:27
PROVIDERS: ADMIT Internal Medicine Nephrology; ATTEND Internal Medicine Nephrology
DX: M54.5 Low back pain (principal); N20.0 Calculus of kidney; R07.9 Chest pain, unspecified; R55 Syncope and collapse; M51.36 Other intervertebral disc degeneration, lumbar region; M51.26 Other intervertebral disc displacement, lumbar region
CPT/HCPCS: 36415; 70450; 71010; 72100; 72148; 80053; 80324; 80345; 80346; 80349; 80353; 80358; 80361; 81001; 82550; 82553; 83690; 83992; 84484; 85025; 85378; 86850; 86900; 93005; 93306; 95812; 96361; 96374; 97162; 97165; 97530; 99285; G0378; G8978; G8979; G8980; G8987; G8988; G8989; J1650; J2405; J7040